=== PATIENT | male | born 1950 | race Caucasian/White ===

== ENCOUNTER 2023-10-14 08:34 | Observation (INO) ==
--- NOTE | 2023-09-26 11:29 | PAT Medication Instructions ---
Medication Instructions Date of Service September 26, 2023 Home Medications amlodipine 5 mg tablet 5 mg PO QAM aspirin 81 mg capsule 81 mg PO QAM levothyroxine 75 mcg capsule 75 mcg PO QAM lisinopril 40 mg tablet 40 mg PO QAM rosuvastatin 40 mg tablet 40 mg PO HS DO NOT take the morning of surgery lisinopril 40 mg tablet 40 mg PO QAM Take morning of surgery With a small sip of water, OTHERWISE NOTHING TO EAT OR DRINK AFTER MIDNIGHT: amlodipine 5 mg tablet 5 mg PO QAM aspirin 81 mg capsule 81 mg PO QAM (unless surgeon directed otherwise) levothyroxine 75 mcg capsule 75 mcg PO QAM Take evening before surgery rosuvastatin 40 mg tablet 40 mg PO HS Other Notes If you have any questions please call us at [phone] or [phone] or [phone] or [phone]
--- NOTE | 2023-09-30 10:27 | Anesthesiology Consultation ---
Date of Service September 30, 2023 Assessment & Plan (1) Encounter for pre-operative examination: Chart Review Chart Review: Acceptable Risk for Surgery and Patient seen in Pre Admission Testing Pt currently scheduled as 23 hours observation. If surgeon decides to change patient to Same Day [facility], patient would be acceptable risk for TKA, pending patient is motivated, has good support and surgeon's office completes [facility] preop requirements. - Patient educated that shingles will need fully resolved by DOS (only mild rash- no openings at this time)- patient will call in if symptoms persist or get worse Per PAT appt on 09/30/23, no recent illness/disease exposures, illness related symptoms, or recent illness/disease positive tests. Will leave to surgeon's discretion if preop Covid testing needed Teaching & Discussion Pre-Anesthesia Teaching/Discussion Notes: Instructed NPO after midnight before surgery,except medications with 15 cc of water. Medication instructions provided according to the PAT guidelines. History Surgery Operation Date: 10/14/23 12:30 Proposed Procedures p Right Total Knee Arthroplasty - Joseph Tomas MD Height/Weight Height: 6 ft Weight: 91.9 kg Allergies Allergy/AdvReac Type Severity Reaction Status Date / Time No Known Allergies Allergy Verified 09/26/23 09:58 Medications Home Medications Medication Instructions Recorded Confirmed Last Taken amlodipine 5 mg tablet 5 mg PO QAM 09/26/23 09/26/23 Unknown aspirin 81 mg capsule 81 mg PO QAM 09/26/23 09/26/23 Unknown levothyroxine 75 mcg capsule 75 mcg PO QAM 09/26/23 09/26/23 Unknown lisinopril 40 mg tablet 40 mg PO QAM 09/26/23 09/26/23 Unknown rosuvastatin 40 mg tablet 40 mg PO HS 09/26/23 09/26/23 Unknown Past Medical History Medical History (Updated 09/30/23 @ 10:23 by Elaine Felipe PA-C) Arthritis neck and lower back>ROM in neck "is good" Epistaxis last nose bleed was ~2021, f/u ENT dr and no problems since (was due to dry nose) History of shingles - right lower thorax - no open areas- all scabbed over- no pain- mild itching - finishing antiviral 09/26/23, no open blisters currently Hx of thyroid cancer 09/20/18, s/p partial thyroidectomy no chemo or XRT Hyperlipidemia Hypertension Hypothyroidism Exercise / Class Metabolic Activity II 4-5 Yardwork/Stairs/Walk up hill (one flight of stairs - no chest pain or SOB ) Past Surgical History Surgical History Hx of colonoscopy Hx of partial thyroidectomy Past Anesthesia History No Hx of Anesthesia Complications and No Family Hx of Anesthesia Complications History of PONV No Hx of PONV and No Hx of Motion Sickness Social History Smoking Status: Former smoker Do You Dip or Chew Tobacco: No (quit 30 years ago; advised) Smoking End Date: only an occasional cigar/maybe 1x per year, none for years Hx Alcohol Use: Yes alcohol intake frequency: holidays/special occasions only Hx Substance Use: No substance use type: does not use Review of Systems Patient denies chest pain, shortness of breath, dyspnea on exertion, reflux, cough, wheezing, palpitations. No hx of seizures, stroke, CO, apnea/snoring. No hx of blood clots or blood transfusions Physical Exam Vital Signs VITALS BP 131/85 P 81 TEMP 97.7 SP02 95% RESP 16 Constitutional no acute distress ENMT Mouth: no TMJ clicking Thyromental Distance: > or= 3.5 Finger Breadths (3.5) Mallampati Class: II Permanent implant - top front right side tooth Missing molars Neck neck extension not limited Respiratory normal respiratory effort; no respiratory distress Auscultation: lungs clear to auscultation bilaterally; no wheezes Cardiovascular Rate/Rhythm: regular rate and regular rhythm Heart Sounds: no murmur Vessels: no carotid bruit Musculoskeletal Spine: no pain with cervical ROM Extremities: extremities normal to inspection Psychiatric Orientation: alert Lab Results Anesthesia Preop Results Results Anesthesia Widget: WBC 7.32 K/ul (4.8-10.8) 09/30/23 Hgb 16.0 g/dl (14.0-18.0) 09/30/23 Hct 47.3 % (42.0-52.0) 09/30/23 Plt 287 K/uL (130-400) 09/30/23 Na 140 mmol/L (136-145) 09/30/23 K 3.9 mmol/L (3.5-5.1) 09/30/23 Cl 107 mmol/L (98-107) 09/30/23 CO2 27 mmol/L (21-32) 09/30/23 BUN 11 mg/dl (6-23) 09/30/23 Creat 0.84 mg/dl (0.6-1.4) 09/30/23 Glucose Level 109 mg/dl (70-99(Fasting)) H 09/30/23 PT 11.4 Seconds (9.0-12.0) 09/30/23 PTT 26 Seconds (21-31) 09/30/23 INR 1.0 (0.9-1.1) 09/30/23 Blood Type A Positive 09/30/23 Antibody Screen NEGATIVE 09/30/23 Testing Electrocardiogram Date: 09/30/23 Findings: + NSR @ (76bpm) Normal EKG per cardio Chest X-Ray Date: 10/03/23 Findings: + NAD FINDINGS: There is mild elevation/eventration of the right hemidiaphragm. No consolidation is present. Pulmonary vascularity is normal. Cardiac size is at the upper limits of normal. There is no pneumothorax or pleural effusion. Echocardiogram Date: 10/17/18 EF: 55% LV Function: normal RWMA: + none Other Findings: + diastolic dysfunction (Grade 1); no LVH Mitral valve is mildly thickened. 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 RV is mildly dilated with normal systolic function. Mild TR. No evidence of pulmonary hypertension. Other Testing Carotid doppler 11/03/21= Mild bilateral ICA stenosis in the range of (1-49%) by velocity criteria. Antegrade flow both vertebral arteries.
--- NOTE | 2023-10-09 09:13 | History & Physical Report ---
Date of Service October 09, 2023 Assessment & Plan (1) Right knee DJD: 73-year-old gentleman with advanced right knee DJD. This is likely related to a tibial plateau fracture 50 years ago that never sought treatment. He has developed subsequent severe arthritis. Failed conservative measures. He like to proceed with knee replacement. Plan: Ale proceed with right total knee replacement. The risks Mente this procedure explained the patient clued but not limited to DVT PE infection neurological and vascular bleeding palm pain limb range of motion sepsis fairly with symptoms incomplete relief of symptoms excetra. Patient understands and desires to proceed. Informed consent was obtained. As far as discharge plans he is planned to be discharged to home use [facility] home health program. Will use aspirin for DVT prophylaxis. He will hold his lisinopril the morning of surgery. History of Present Illness Chief Complaint: . Right knee pain. Primary Care Provider: NO PCP . Patient is a 73-year-old gentleman from [place] who presents for surgical treatment his right knee. Is got a long history of knee problems dating back to about 50 years ago. He initially injured this playing softball. Acute onset of pain discomfort. Never really sought any care. Since then he has pad intermittent pain discomfort swelling in his knee. Pain has become more debilitating. It is gotten stiffer as time goes on. He limps more as the day goes on. He would like to have his right knee fixed. Allergies Allergy/AdvReac Type Severity Reaction Status Date / Time No Known Allergies Allergy Verified 09/26/23 09:58 Home Medications Medication Instructions Recorded Confirmed Type amlodipine 5 mg tablet 5 mg PO QAM 09/26/23 09/26/23 History aspirin 81 mg capsule 81 mg PO QAM 09/26/23 09/26/23 History levothyroxine 75 mcg capsule 75 mcg PO QAM 09/26/23 09/26/23 History lisinopril 40 mg tablet 40 mg PO QAM 09/26/23 09/26/23 History rosuvastatin 40 mg tablet 40 mg PO HS 09/26/23 09/26/23 History Past Med/Surg History Medical History Arthritis neck and lower back>ROM in neck "is good" History of shingles - right lower thorax - no open areas- all scabbed over- no pain- mild itching - finishing antiviral 09/26/23, no open blisters currently Epistaxis last nose bleed was ~2021, f/u ENT dr and no problems since (was due to dry nose) Hx of thyroid cancer 09/20/18, s/p partial thyroidectomy no chemo or XRT Hyperlipidemia Hypertension Hypothyroidism Surgical History Hx of colonoscopy Hx of partial thyroidectomy Social History Smoking Status: Former smoker Smoking End Date: only an occasional cigar/maybe 1x per year, none for years; Second Hand Exposure: No; Do You Dip or Chew Tobacco: No (quit 30 years ago; advised); Tobacco Cessation Education Requested by Patient: No Hx Alcohol Use: Yes Hx Substance Use: No Preferred Language: Serbian Communication Ability: Effective Finish Production Manager Required: No Beliefs That Will Affect Care: None Current Living Situation: Spouse Other Information That Helps Us Care for You: No Feels Safe at Home: Yes Safety Concerns: Feels Safe At This Time Assistive Devices: Glasses Assistive Devices Comment: glasses prn Review of Systems All systems reviewed & are unremarkable except as noted in HPI & below. Physical Exam . Physical examination reveals a pleasant healthy appearing middle-aged male. Examination of the right knee reveals patient walks with an antalgic gait. Is got varus alignment to his knee which is increased with weightbearing. His knee is pretty stiff with about a 15 degree flexion contracture and only bends about 105 to 110 degrees. No particular pain with hip motion. Negative straight leg raise. Constitutional WD/WN, vitals as above Neck trachea midline, no thyromegaly Respiratory normal respiratory effort, lungs clear to auscultation Cardiovascular RRR, no murmur, no edema Gastrointestinal (Abdomen) normal bowel sounds, soft, nontender, no hepatosplenomegaly Results & Data Results & Data Laboratory Results . Diagnostic Findings . X-rays of the right knee were reviewed. Shows advanced right knee DJD. Is got complete loss of his joint space laterally.. He is got osteophytes laterally as well. Looks like he is probably got an old healed tibial plateau fracture. PG Care Time/CCT Total # of Minutes Spent Total Time Spent with Patient: Total time spent is greater than 50% in coordination of care (as documented) at patient's floor/unit and/or counseling patient: Coding Level of Care Code None Diagnoses Right knee DJD M17.11
[~2023-10-14 08:34] MED LIST: BUPIVACAINE 0.5 % 5 MG/1 ML PF 10ML VIAL ONE; EPINEPHrine INJ 1 MG/ML AMP ONE; ROPIVACAINE 0.5% 5 MG/ML 30 ML VIAL ONE
--- NOTE | 2023-10-14 09:06 | History & Physical Bridge Note ---
Date of Service October 14, 2023 History & Physical Bridge Note I have examined the patient, reviewed the History & Physical and in the interval since the performance of the History & Physical I have noted the following changes of clinical significance: no changes noted
[2023-10-14] MEDS: ACETAMINOPHEN 500 MG TAB PO SCH ×2 (09:34→15:30)
[2023-10-14] MEDS: FAMOTIDINE 20 MG TAB PO SCH (09:34)
[2023-10-14] MEDS: CeleBREX 200 MG CAP PO SCH (09:34)
[2023-10-14] MEDS: METOCLOPRAMIDE HCL 10 MG TABLET PO SCH (09:34)
[2023-10-14] MEDS: LR 500ML BOLUS, THEN 15ML/HR IV SCH (09:37)
[2023-10-14] MEDS ORDERED: PROPOFOL IV EMULSION 10 MG/ML 20 ML VIAL IV ONE ×2 (09:41→12:34)
[2023-10-14] MEDS ORDERED: MIDAZOLAM HCL 1 MG/ML 2ML VIAL ONE (09:43)
[2023-10-14] MEDS ORDERED: fentaNYL citrate PF 100 MCG/2 ML VIAL ONE (09:50)
[2023-10-14] MEDS: dexAMETHasone**PF** 10 MG/ML VIAL IV SCH (09:52)
[2023-10-14] MEDS: LR 60ML/HR IV SCH (09:58)
[2023-10-14] MEDS ORDERED: ATROPINE SULFATE 0.1 MG/ML 10ML SYR IV PRN (11:13)
[2023-10-14] MEDS ORDERED: ePHEDrine sulfate 50 MG/ML AMP IV PRN (11:13)
[2023-10-14] MEDS: ceFAZolin 2000MG 2,000 MG/15 ML SYR IV SCH ×2 (11:15→20:29)
[2023-10-14] MEDS ORDERED: DEXAMETHASONE SOD INJ 4 MG/ML VIAL ONE (11:25)
[2023-10-14] MEDS ORDERED: ONDANSETRON INJ 2 MG/ML 2 ML VIAL ONE (11:25)
[2023-10-14] MEDS ORDERED: LIDOCAINE 2% 2 ML VIAL/AMP(20MG/ML) INFIL ONE (11:41)
[2023-10-14] MEDS ORDERED: PHENYLEPHRINE 100MCG/ML 10ML SYR IV ONE (11:49)
[2023-10-14] MEDS: ORTHO JOINT ANESTHETIC ONE (12:02)
[2023-10-14] MEDS ORDERED: ePHEDrine sulfate 50 MG/5 ML SYR ONE (12:21)
[2023-10-14] MEDS: TRANEXAMIC ACID 1,000 MG **IV Intra-op IV SCH (12:34)
[2023-10-14] MEDS: ROPIV 0.5% 246mg, Ketorolac 30mg, EPINEPHrine 0.5mg in NSS INFIL SCH (12:58)
--- NOTE | 2023-10-14 13:28 | Operative Report ---
PG Post Operative Report Pre & Post Diagnosis Operation Date: 10/14/23 10:40 Pre-Op Diagnosis: Right Knee Degenerative Joint Disease Post-Op Diagnosis: Right Knee Degenerative Joint Disease I identified the patient and participated in the time-out.: Yes Procedure Operation Date: 10/14/23 10:40 Actual Procedures p Right Total Knee Arthroplasty(Right) - Joseph Tomas MD Surgeon Joseph Tomas MD Handy Worker Miguel Tamayo PA-C Estimated Blood Loss 50 Findings Consistent with Post-Op Diagnosis Operative findings were advanced right knee tricompartment DJD.. Extensive grade 4 [id number] disease in all 3 compartments most severe in the lateral side. Large defect posterior laterally and a valgus deformity to his knee. He had some MCL laxity. Specimens Right knee sent for pathology. Anesthesia Type Spinal MAC Complications none Disposition Accompanied Patient To Recovery: No Indications Patient is a 73-year-old gentleman is had a long history of right knee pain discomfort and progressive deformity. He did Cesol back to an injury that he had 40 years or so ago. Never really sought care. He has had persistent progressive pain discomfort and stiffness in his knee which is gotten worse over time. He failed conservative measures. He elected proceed with total knee arthroplasty. Description of Procedure Operative implants consisted of: 1 Biomet Vanguard size 67.5 right Po stabilized femoral component. 2. Biomet size 75 tibial tray. 3. 16 mm PS plus a polyethylene insert. 4. 431 x 8 all poly patella. The patient was taken to the operating, identified, placed on the operating table in supine position but all contact areas were properly padded. IV antibiotics tried by anesthesia team. Spinal anesthetic was implemented in the holding area along with an adductor canal block. Right thigh tent was then placed. The right lower extremity was then prepped and draped in the usual sterile fashion. The right leg was elevated exsanguinated with use of an Esmarch and a turn was placed at 300 mmHg. An anterior approach to the right knee was then performed through a longitudinal incision centered over the patella. Sharp dissection was carried through subcutaneous tissue down the extensor mechanism. A medial parapatellar arthrotomy incision was made. Some subperiosteal dissection was carried out medially. There is there was a large bone fragment underneath the patella tendon which were removed. The patella was subluxated laterally. The lateral patellofemoral ligament was released. Patella was subluxated and the knee was flexed. The osteophytes taken off distal femur. His ACL and PCL were both insufficient and essentially absent. The tibia subluxated anteriorly. I could not use the external tibial alignment jig due to the ossicles in his patella tendon. Therefore we elect to use the IM guide. The intercondylar eminence was excised. I then reamed with the centralizing IM cutting guide. The proximal tibial cut was then made 2 mm above the most deficient aspect of the posterior lateral tibial plateau. This did take a fairly large piece of bone off proximally and medially especially. This tibia was then sized to a size 75. Attention drawn the femur. The distal femur today with a sharp drill bit intramedullary canal was suction. A right 5 degree valgus cutting guide was placed. This femoral cutting block was pinned in place. Distal femoral cut was made to take an additional 3 mm of bone off distal femur. The femur was then sized to a size 70 initially. The AP cutting block was pinned parallel to the epicondylar axis which was 4 degrees of external rotation. The anterior cut, anterior chamfer, posterior cut, posterior chamfer cuts were made. The box cutting guide was placed in the just slight lateral and the box cut was made. The knee was flexed with the remnants of the medial and lateral menisci were excised. The osteophyte taken off the posterior aspect the femur. A trial femoral component was placed. It was extremely loose with no interference fit. Therefore we elected to place a 67.5 femoral component. The AP cutting guide was placed and I recut the anterior and chamfer cuts. The 67.5 implant was placed and fit nicely. The tibial tray was then pinned Mindy external rotation and the drill and stem punch used to create defect in proximal tibia for the tibial tray. The knee was then trialed. Diabetes continue to have some laxity of the MCL significant PS insert. The 16 mm insert fit most appropriately. Attention drawn the patella. The patella was cleaned of all soft tissues. Patella thickness measured 22 mm in thickness was cut down to 14. Was sized to a size 31 patella. The lug holes were drilled for 31 patella. Lateral x-rays removed. Patella button was placed. Knee was taken through range of motion and the patella tracked nicely with no thumbs test. Attention drawn to placing the permanent components. All trial components were removed. Bone plug was placed into this femur limit blood loss. I also placed a bone plug in the proximal tibia. A double batch Palacos G cement was mixed. A Biomet Vanguard size 67.5 right Po stabilized femoral component, size 75 tibial tray, a 16 mm PS plus insert, and a 31 x 8 all poly patella then cemented in place. Knee was brought out into full extension till cement hardened. Final cement check was then performed. The pericapsular tissues were injected with total 100 cc of orthopedic joint mix. The patient did receive 1 g tranexamic acid. The tourniquet was let down for final turn time of 76 minutes. Hemostasis assured use electrocautery. Extensor Meclomen closed with combination 1 PDS suture #1 Vicryl suture in a [id number] fashion. Extensor Meclomen checked found to be intact the subcutaneous tissue then closed with 2 Dexon suture in a buried interrupted fashion skin was closed skin morales. Leg was then cleaned and dried and sterile dressing was Xeroform, 4 fours, sterile cast padding, Eben bandage were applied. Patient transferred to the recovery room in stable condition. Patient tolerated procedure well and there were no complications. Miguel Tamayo, my physician assistant plant control operator, was present for the entire procedure. His assistance was essential and required for appropriate patient positioning, prepping and draping, surgical exposure, performing the technical details of the operation, placement the implants, closure of the wound, and placement of the sterile bandage. I attest to the content of the Intraoperative Record and any orders documented therein. Any exceptions are noted below.
--- NOTE | 2023-10-14 14:06 | XRay Report ---
XR knee RT 1 or 2V routine CLINICAL HISTORY: Postoperative evaluation. COMPARISON: Right knee radiographs August 29, 2023. FINDINGS: Alignment of the total right knee arthroplasty is anatomic. There is no periprosthetic fra cture or unexpected radiopaque foreign body. There are skin morales. IMPRESSION: Expected findings following total right knee arthroplasty. ACT 112: Negative or not required by law. Electronically signed by: Gerry Shah M.D. 10/14/2023 2:05 PM
--- NOTE | 2023-10-14 14:28 | Anesthesiology Progress Note ---
Date of Service October 14, 2023 Anesthesia Post Procedure Vital Signs Vital Signs: Temp Pulse Pulse Resp BP Pulse Ox O2 Del Method 10/14/23 14:25 36.8 C 73 12 103/58 L 98 Room Air 10/14/23 14:10 36.8 C 82 10 L 107/67 93 Room Air 10/14/23 14:00 36.8 C 79 17 104/65 95 Room Air 10/14/23 13:50 74 17 106/58 L 95 Oxymask 10/14/23 13:40 79 15 94/56 L 93 Oxymask 10/14/23 13:30 85 20 95/58 L 95 Oxymask 10/14/23 13:21 36.8 C 95 H 20 92/58 L 93 Oxymask 10/14/23 09:23 36.5 C 88 20 133/93 95 Room Air O2 Flow Rate 10/14/23 14:25 10/14/23 14:10 10/14/23 14:00 10/14/23 13:50 3 10/14/23 13:40 5 10/14/23 13:30 5 10/14/23 13:21 9 10/14/23 09:23 Transfer of Care Handoff Completed per policy Notes Mental Status: alert / awake / arousable Patient Amnestic to Procedure: Yes Nausea / Vomiting: adequately controlled Pain: adequately controlled Airway Patency, RR, SpO2: stable & adequate BP & HR: stable & adequate Hydration State: stable & adequate Neuraxial Anesthesia: was administered and sensory block is resolving Anesthetic Complications: no major complications apparent
[2023-10-14] MEDS ORDERED: ONDANSETRON INJ 2 MG/ML 2 ML VIAL IV PRN (14:40)
[2023-10-14] MEDS ORDERED: NALOXONE HCL 0.4 MG/1 ML VIAL/CARP IV PRN (14:40)
[2023-10-14] MEDS ORDERED: bisacodyL 10 MG SUPP PR PRN (14:40)
[2023-10-14] MEDS ORDERED: MAGNESIUM HYDROXIDE SUSP 30 ML UDC PO PRN (14:40)
[2023-10-14] MEDS ORDERED: ALUMINUM/MAGNESIUM SUSP 30 ML UDC PO PRN (14:40)
[2023-10-14] MEDS ORDERED: METOCLOPRAMIDE HCL INJ 5 MG/ML 2 ML VIAL IV PRN (14:40)
[2023-10-14] MEDS ORDERED: HYDROmorphone INJ 0.5 MG/0.5 ML SYR IV PRN (14:40)
[2023-10-14] MEDS: SODIUM CHLORIDE 0.9% 1,000 ML IV SCH (15:24)
[2023-10-14] MEDS: KETOROLAC TROMETHAMINE 15 MG/ML VIAL IV SCH (15:30)
[2023-10-14] MEDS: ASCORBIC ACID 500 MG TAB PO SCH (16:57)
[2023-10-14] MEDS: DOCUSATE SODIUM 100 MG CAP PO SCH (20:30)
[2023-10-14] MEDS: TRANEXAMIC ACID / 0.7% NACL 1,000 MG/100 ML BAG IV SCH (20:30)
[2023-10-14] MEDS: SENNA 8.6 MG TAB PO SCH (20:31)
[2023-10-14] MEDS: ASPIRIN 81 MG ECTAB PO SCH (20:31)
[2023-10-14] MEDS: ROSUVASTATIN CALCIUM 20 MG TAB PO SCH (20:32)
[2023-10-14] MEDS ORDERED: SENNA 8.6 MG TAB PO SCH (21:00)
[2023-10-14] MEDS: oxyCODONE HCL IR 5 MG TAB (IMMEDIATE RELEASE) PO PRN (23:27)
[2023-10-15] MEDS: LEVOTHYROXINE SODIUM 75 MCG TABLET PO SCH (05:30)
[2023-10-15 06:28] LABS: Hematocrit (blood only) 35.3 % (42.0-52.0); Hemoglobin 12.3 g/dl (14.0-18.0); Mean Corpuscular Hemoglobin 29.7 pg (25.0-34.0); Mean Corpuscular Hgb Conc 34.8 g/dL (32.0-36.0); Mean Corpuscular Volume 85.3 fL (80.0-100.0); Mean Platelet Volume 9.9 fL (9.4-12.4); Platelet Count 231 K/uL (130-400); RDW Coefficient of Variation 14.1 % (11.5-14.5); RDW Standard Deviation 43.8 fL (36.4-46.3); Red Blood Count 4.14 M/uL (4.70-6.10); White Blood Count 14.99 K/ul (4.8-10.8)
[2023-10-15 06:47] LABS: BUN Creatinine Ratio 17.9 (10-20); Calcium 8.1 mg/dl (8.6-10.3); Creatinine Clr Calc Pharmacy 97.5 ml/min; Est GFR (African American) 105.3 ml/min; Est GFR (Non-African American) 90.8 ml/min; Potassium 4.2 mmol/L (3.5-5.1)
--- NOTE | 2023-10-15 07:19 | Surgery Progress Note ---
Date of Service October 15, 2023 Assessment & Plan (1) Status post right knee replacement: Plan: 73-year-old gentleman postop day 1 from a right knee replacement doing pretty well. Pain is controlled. He is neurologically intact. Plan: 1. DVT prophylaxis including thigh-high teds, SCDs, aspirin twice a day. 2. PT/OT. Weight-bear as tolerated right total knee protocol. 3. Pain control doing okay with current pain regimen. 4. Disposition plan to discharge home with some home health later today if he does okay in therapy. Admission and Anticipated Discharge Date Admission Date: October 14, 2023 Subjective 73-year-old gentleman now postop day 1 from right knee replacement. He is doing well this morning. Reports fairly minimal pain. Had a pretty decent night. No chest pain or shortness of breath. Not feeling dizzy or lightheaded. Physical Exam Physical Exam: Physical examination is a pleasant middle-age male. He is awake alert and oriented. Sitting up in bed looks pretty comfortable this morning. Examination of the right leg reveals leg to be well aligned. Dressings clean dry and intact he can dorsiflex and plantarflex his foot appropriately. He is neurologically intact. Respiratory: normal respiratory effort, lungs clear to auscultation Cardiovascular: RRR, no murmur, no edema Gastrointestinal (Abdomen): normal bowel sounds, soft, nontender, no hepatosplenomegaly Results & Data Vital Signs (Past 12 Hours) Vital Signs Temp Pulse Resp BP Pulse Ox O2 Del Method 10/15/23 02:01 36.4 C L 67 16 108/63 93 Room Air 10/14/23 23:13 36.4 C L 66 15 121/64 94 Room Air Laboratory Results Hemoglobin is 12.3. Hematocrit 35.3. Electrolytes are stable. PG Care Time/CCT Total # of Minutes Spent Total Time Spent with Patient: Total time spent is greater than 50% in coordination of care (as documented) at patient's floor/unit and/or counseling patient: Coding Level of Care Code 43951 Post Operative Follow-Up Diagnoses Status post right knee replacement Z96.651
[2023-10-15] MEDS: lisinopril 40 MG TAB PO SCH (08:37)
[2023-10-15] MEDS: amLODIPine BESYLATE 5 MG TAB PO SCH (08:37)
[2023-10-15] MEDS: TAMSULOSIN HCL 0.4 MG CAP PO SCH (08:37)
[2023-10-15] MEDS: dexAMETHasone 10 MG in SYRINGE 0 ML IV SCH (08:38)
[2023-10-15] MEDS: MULTIVITAMIN TAB PO SCH (08:38)
--- NOTE | 2023-10-22 17:19 | Discharge Summary ---
Date of Service October 22, 2023 Discharge Data Procedures Performed Operation Date: 10/14/23 10:40 Actual Procedures p Right Total Knee Arthroplasty(Right) - Joseph Tomas MD Hospital Course (1) Status post right knee replacement: This is a 73 year old patient admitted on 10/14/23 and underwent total knee arthroplasty. He tolerated the procedure well and there were no complications. Transferred to the PACU post op and later to the orthopedic floor for further care. He was given ancef for antibiotic prophylaxis. He was also given EULA stockings, SCDs, and aspirin for DVT prophylaxis. Hemoglobin, hematocrit, and vital signs were monitored during his hospital stay and remained stable. Did not require any blood transfusions. There were no complications during his hospital stay. By post op day #1 the patient was tolerating a regular diet, pain was reasonably controlled with oral pain medicine, and he was participating in physical therapy. On post op day #1 the patient was discharged home and set up with home health care. He was given printed discharge instructions including prescriptions for extra strength tylenol, aspirin, cefadroxil, ketorolac, zofran, senokot, oxycodone, and flomax. Continue physical therapy, weight bearing as tolerated. Continue EULA stockings. Follow up approximately 2 weeks post op or sooner if there are problems or concerns. Coding Level of Care Code None Diagnoses Status post right knee replacement Z96.651
== END 2023-10-15 11:29 | disposition home health service (06) ==
LOC: 3E 08:34 → ASU 08:34
DX: M21.061 Valgus deformity, not elsewhere classified, right knee; I10 Essential (primary) hypertension; M25.761 Osteophyte, right knee; E78.5 Hyperlipidemia, unspecified; Z79.899 Other long term (current) drug therapy; M17.11 Unilateral primary osteoarthritis, right knee; Z85.850 Personal history of malignant neoplasm of thyroid; Z79.890 Hormone replacement therapy; E89.0 Postprocedural hypothyroidism; Z79.82 Long term (current) use of aspirin; Z87.891 Personal history of nicotine dependence; M65.9 Synovitis and tenosynovitis, unspecified